=== PATIENT | male | born 1990 | race Caucasian/White ===

== ENCOUNTER 2017-12-24 20:54 | Observation (INO) | payer OTHER, SELFPAY ==
[~2017-12-24] VITALS: Ht 165.1 cm; Wt 90.0 kg
[2017-12-24] MEDS ORDERED: LORazepam 1MG TABLET PO ONE (21:30)
[2017-12-24 21:33] LABS: BASOPHILS # (AUTO) 0.03 x10^3/uL (0-0.1); BASOPHILS % (AUTO) 0 % (0-1); EOSINOPHILS # (AUTO) 0.09 x10^3/uL (0-0.4); EOSINOPHILS % (AUTO) 1 % (1-7); LYMPHOCYTES # (AUTO) 2.61 x10^3/uL (1-3.4); LYMPHOCYTES % (AUTO) 25 % (22-44); MD NO; MEAN CORPUSCULAR HEMOGLOBIN 30.9 pg (27.5-34.5); MEAN CORPUSCULAR HGB CONC 34.2 g/dL (33.2-36.2); MEAN CORPUSCULAR VOLUME 90.5 fL (81-97); MEAN PLATELET VOLUME 8.2 fL (7.4-10.4); MONOCYTES # (AUTO) 0.72 x10^3/uL (0.2-0.8); MONOCYTES % (AUTO) 7 % (2-9); NEUTROPHILS # (AUTO) 6.81 x10^3/uL (1.8-6.8); NEUTROPHILS % (AUTO) 66 % (42-75); PLATELET COUNT 331 x10^3/uL (130-400); RED BLOOD COUNT 4.98 x10^6/uL (4.38-5.82); RED CELL DISTRIBUTION WIDTH 13.1 % (9.4-14.8)
[2017-12-24 21:44] LABS: ACETAMINOPHEN < 2 mcg/mL (10-30); ALBUMIN 4.2 g/dL (3.4-5.0); ANION GAP 8 mmol/L (5-15); CALCIUM 8.3 mg/dL (8.5-10.1); CHLORIDE 110 mmol/L (98-107); CREATININE 1.21 mg/dL (0.7-1.3); SALICYLATE LEVEL < 1.7 mg/dL (2.8-20.0)
[2017-12-24 22:03] LABS: AMPHETAMINE SCREEN, URINE Negative (Negative); BARBITURATE SCREEN, URINE Negative (Negative); BENZODIAZEPINE SCREEN, URINE Negative (Negative); CANNABINOID SCREEN, URINE Negative (Negative); COCAINE SCREEN, URINE Negative (Negative); METHADONE SCREEN, URINE Negative (Negative); OPIATE SCREEN, URINE Negative (Negative)
[2017-12-25] MEDS ORDERED: DOCUSATE 100 MG CAPSULE PO PRN (05:30)
[2017-12-25] MEDS ORDERED: ONDANSETRON ODT 4 MG PO PRN (05:30)
[2017-12-25] MEDS ORDERED: ACETAMINOPHEN 325 MG TABLET PO PRN (05:30)
[2017-12-25 05:50] LABS: FREE T4 (FREE THYROXINE) 0.93 ng/dL (0.76-1.46); THYROID STIMULATING HORMONE 0.831 mIU/L (0.358-3.740)
[2017-12-25 08:15] VITALS: BP 127/86
[2017-12-25 19:49] VITALS: BP 126/85
[2017-12-26 09:00] VITALS: BP 123/83
[2017-12-26 10:45] LABS: MICROSCOPIC NOT IND
[2017-12-26 10:48] LABS: CULTURE INDICATED? NO
[2017-12-26 19:30] VITALS: BP 124/76
[2017-12-27 07:45] VITALS: BP 126/78
== END 2017-12-27 18:29 | disposition home or self-care (01) ==
LOC: ED 12-25 01:25 → 2N 12-25 05:11
PROVIDERS: ADMIT Internal Medicine; ATTEND Internal Medicine
DX: R45.851 Suicidal ideations (principal); F10.129 Alcohol abuse with intoxication, unspecified; F17.200 Nicotine dependence, unspecified, uncomplicated; F32.9 Major depressive disorder, single episode, unspecified
CPT/HCPCS: 36415; 80048; 80307; 80329; 81003; 82040; 84439; 84443; 85025; 99285; G0378; G0480